=== PATIENT | female | born 1955 | race Caucasian/White ===

== ENCOUNTER 2023-04-07 13:55 | Outpatient (CLI) | payer MEDICARE, BC ==
--- NOTE | 2023-04-15 12:25 | Mammography Report ---
BILATERAL DIGITAL SCREENING MAMMOGRAM 3D/2D WITH AUGMENTATION: 04/07/2023 CLINICAL: Routine screening. No prior exams were available for comparison. There are scattered areas of fibroglandular density in both breasts (category b / 25%-50% glandular t issue). No significant masses, calcifications, or other findings are seen in either breast. There are bilater al intact subpectoral silicone implants. IMPRESSION: BENIGN There is no mammographic evidence of malignancy. A 1 year screening mammogram is recommended. Based on the Tyrer Cuzick model (a risk assessment model) the patients lifetime risk is 6.6% and her 10 year risk is 3.9%. According to the ACR, ACS, and NCCN guidelines, an annual breast MRI exam micki g with mammogram is recommended if the patients lifetime risk is 20% or greater. This exam was interpreted at Station ID: [id number]. NOTE: For mammograms, a report in lay terms will be sent to the patient. Approximately 15% of breast malignancies will not be visualized mammographically. In the management of a palpable breast mass, a negative mammogram must not discourage biopsy of a clinically suspicious lesion. Electronically Signed By: Radha Hernandez M.D. esb/:04/14/2023 14:30:31 ACR BI-RADS Category 2: Benign Finding(s) 3342F PARENCHYMAL PATTERN: (A) - The breast(s) demonstrate(s) scattered fibroglandular densities. BI-RADS CATEGORY: (2) - 2 Mammogram [id number] 1 year screening LATERALITY: (B)
== END 2023-04-07 13:56 | disposition home or self-care (01) ==
LOC: DI.S 13:55
PROVIDERS: ATTEND Nurse Practitioner Family
DX: Z12.31 Encounter for screening mammogram for malignant neoplasm of breast (principal)

== ENCOUNTER 2023-11-18 08:00 | Outpatient (CLI) | payer MEDICARE, BC ==
[2023-11-18 15:22] LABS: BILIRUBIN,URINE NEGATIVE (NEGATIVE); GLUCOSE, URINE (UA) NEGATIVE (NEGATIVE); KETONES,URINE (UA) NEGATIVE (NEGATIVE); LEUKOCYTE ESTERASE, URINE NEGATIVE (NEGATIVE); NITRITE,URINE NEGATIVE (NEGATIVE); OCCULT BLOOD,URINE NEGATIVE (NEGATIVE); PROTEIN,URINE NEGATIVE (NEGATIVE); UROBILINOGEN,URINE 0.2 (NORMAL) E.U./dL (NORMAL)
[2023-11-18 15:33] LABS: BACTERIA,URINE Rare /HPF (None Seen); CLARITY,URINE CLEAR (CLEAR); RBC,URINE 0-5 /HPF (0-5); SQUAMOUS EPITHELIAL CELL,UR RARE Squamous (<= Few); WBC,URINE 0-3 /HPF (0-5)
== END 2023-11-18 23:59 | disposition home or self-care (01) ==
LOC: LAB.S 08:00
PROVIDERS: ATTEND Physician Assistant Medical
DX: R30.0 Dysuria (principal); R80.9 Proteinuria, unspecified
CPT/HCPCS: 81001; 87086

== ENCOUNTER 2023-11-18 08:16 | Outpatient (CLI) | payer MEDICARE, BC ==
--- NOTE | 2023-11-18 11:24 | CT Report ---
PROCEDURE: Lung Cancer Screen INDICATIONS: HIST OF SMOKING TECHNIQUE: A CT scan of the chest was performed. Intravenous contrast media was not administered. Images were re corded and evaluated at appropriate window settings. Reformats: axial MIP of the chest, coronal and s agittal. For radiation dose reduction, the following was used: automated exposure control, adjustment of mA and/or kV according to patient size. COMPARISON: None. FINDINGS: Image quality: Excellent. Prior cancer history: None known Lungs and pleura: No pleural effusions. No pneumothorax. No suspicious pulmonary nodules which requi re follow up. Mediastinum: Heart size is normal. No pericardial effusion. No large vessel abnormality. No mediastin al adenopathy by size criteria although evaluation is limited due to lack of IV contrast. Chest wall and lower neck: Thyroid is unremarkable. No axillary or supraclavicular adenopathy by size . Bilateral breast implants. Bones: No aggressive osseous abnormality. Scoliosis Upper Abdomen: Small hiatal hernia. Possible cholecystectomy clips. Possible splenic artery calcifica tion/1 cm calcified splenic artery aneurysm. IMPRESSION: Lung RAD: 2, benign Recommendation: Continue with LDCT in 12 months if meets criteria Non-Lung Significant Findings: . Scoliosis. Reviewed by: Phill Curry MD on 11/18/2023 11:23 AM PDT Approved by: Phill Curry MD on 11/18/2023 11:23 AM PDT Station ID: [id number]
--- NOTE | 2023-11-18 12:22 | DEXA Report ---
PROCEDURE: Dexa Spine and/or Hip INDICATIONS: OSTEOPOROSIS TECHNIQUE: Dual energy x-ray absorptiometry (DXA) was performed on a [employer] System. Regions measur ed are the AP Spine, femoral neck, and if needed forearm. COMPARISON: None. FINDINGS: Lumbar Spine: Bone Mineral Density: 0.866 g/cm/cm,T score: -2.5. Left Femoral Neck: Bone Mineral Density: 0.876 g/cm/cm, T score: -1.2. Left Hip: Bone Mineral Density: 0.820 g/cm/cm,T score: -1.5. (T score greater or equal to -1.0: NORMAL) (T score from -1.1 to -2.4: OSTEOPENIA) (T score less than or equal to -2.5 to: OSTEOPOROSIS) Impression: By WHO criteria, this patient has osteoporosis. Patients with diagnosis of osteoporosis or osteopenia should have regular bone mineral density assess ment. For those eligible for Medicare, routine testing is allowed once every 2 years. Testing frequ ency can be increased for patients who have rapidly progressing disease or for those who are receivin g medical therapy to restore bone mass. Reviewed by: Leobardo Lauren MD on 11/18/2023 12:21 PM PDT Approved by: Leobardo Lauren MD on 11/18/2023 12:21 PM PDT Station ID: [id number]
== END 2023-11-18 08:17 | disposition home or self-care (01) ==
LOC: DI 08:16
PROVIDERS: ATTEND Registered Nurse
DX: Z12.2 Encounter for screening for malignant neoplasm of respiratory organs (principal); M81.0 Age-related osteoporosis without current pathological fracture; M41.9 Scoliosis, unspecified; Z87.891 Personal history of nicotine dependence

== ENCOUNTER 2023-11-26 11:54 | Day surgery (SDC) | payer MEDICARE, BC ==
--- NOTE | 2023-11-26 08:52 | HISTORY & PHYSICAL EXAMINATION ---
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, Hysterectomy Meds/Allgy - Home Medications Home Medications: Ambulatory Orders Medication Instructions Recorded Confirmed Dicyclomine HCl 20 mg PO HS 09/26/22 11/25/23 Melatonin 5 mg PO HS 09/26/22 11/25/23 Meloxicam, Submicronized 15 mg PO DAILY 09/26/22 11/25/23 [Meloxicam] Rosuvastatin Calcium [Crestor] 5 mg PO DAILY 09/26/22 11/25/23 buPROPion HCL [Bupropion Xl] 450 mg PO DAILY 09/26/22 11/25/23 [place]-3/Dha/Epa/Fish Oil [Fish Oil 1 each PO DAILY 11/25/23 11/25/23 1,000 mg Softgel] Vitc/E/Zinc/Copper/Lutein/Zeax 1 each PO DAILY 11/25/23 11/25/23 [Icaps Areds2 Tablet] valACYclovir [Valtrex] 500 mg PO PRN PRN 11/25/23 11/25/23 - Allergies Allergies/Adverse Reactions: Allergies Allergy/AdvReac Type Severity Reaction Status Date / Time Sulfa (Sulfonamide Allergy Rash Verified 09/26/22 10:51 Antibiotics) Conclusion/Plan - Other Other Results/Comments: History of Present Illness: I am asked to see Leatha for a screening colonoscopy examination. GI symptoms: None Family history of colon cancer: N Family history of colon polyps: N Personal history of colon polyps: N Last colonoscopy examination: 2014 - poor prep Anticoagulant use: NA The Past Family, Social and Personal History has been reviewed with the patient. ROS Denies fevers, chills, night sweats, shortness of breath, chest pain, change in the color of skin or urine, diarrhea, constipation, hematemesis, hematochezia, headache, visual changes, muscle aches. PE VSS, Afeb HEENT: Pupils equil, round and reactive to light, sclera anicteric, normal hearing, oral mucous membranes moist and without lesions NECK: Supple without lymphadenopathy, thyromegaly or carotid bruits LUNGS: Clear to auscultation without wheezing HEART: NSR without murmurs CHEST: Equal and symmetric expansion, no rib pain ABD: Soft, nontender, no hepatosplenomegaly, no hernias GROIN: No hernias or lymphadenopathy EXTREMITIES: Normal neuro and muscular exam SKIN: Anicteric Radiologic Studies N/A Assessment Request for a screening colonoscopy examination. Plan Screening colonoscopy under sedation through the Day Surgery admission protocol at [facility]. Consent: Leatha has been counseled for the procedure, it's indications, risks, benefits and expected outcome as well as alternative therapies. We specifically discussed risks associated with anesthesia and insertion of the endoscope into the large intestine which includes bleeding and injury to the colon which may require surgical intervention. Leatha understands, agrees, and consents to the proposed operative strategy and requests that we proceed with the procedure as outlined in our discussion. Neftali Saenz MD, [facility] General Surgery Service Mallampati Score Class I: The soft palate, tonsils, anterior and posterior pillars, and the entire uvula are easily visible ASA Physical Status Classification System ASA I: A normal healthy patient Allergies: Allergies Reviewed: Done SULFA (SULFADIAZINE) (Critical) Social History Reviewed: Done Medications: Meds Reviewed: Done amoxicillin-pot clavulanate 875-125 mg tablet (amoxicillin-pot clavulanate) Take 1 tablet by mouth twice a day * ICaps AREDS2 (copper citrate) once a day * Fish Oil (wlgsv-4a-ymu-epa-fish oil) once a day rosuvastatin 5 mg tablet (rosuvastatin) bupropion HCl 300 mg tablet extended release 24 hr (bupropion hcl) bupropion HCl 150 mg tablet extended release 24 hr (bupropion hcl) meloxicam 15 mg tablet (meloxicam) dicyclomine 20 mg tablet (dicyclomine) once a day Problems: Problems Reviewed: Done No Known Problems Vital Signs: Patient Profile: 68 Years Old Female Height: 62 inches Weight: 130 pounds BMI: 23.86 Temp: 97.8 degrees F oral Pulse rate: 76 / minute Resp: 97.8 per minute BP sittin / 74 Pt. in pain? no Vitals Entered By: Yolanda Castaneda RN (November 02, 2023 1:24 PM) Problems were reviewed with the patient during this visit. Medications were reviewed with the patient during this visit. Allergies were reviewed with the patient during this visit. Allergies: SULFA (SULFADIAZINE) (Critical) Blood Pressure: Today's BP: 126/74 mmHg <><><><><><> H&P Update: Patient examined, chart reviewed. No changes identified that would alter plan for colonoscopy although patient requires a Fleet's enema to complete the bowel cleansing process. Ariel Saenz MD, [facility] General Surgery Service 11/26/2023
[2023-11-26] MEDS ORDERED: LIDOCAINE-MPF 2% 5 ML VIAL ONE (12:19)
[2023-11-26] MEDS ORDERED: PROPOFOL 500 MG/50 ML 500 MG/50 ML VIAL ONE ×2 (12:19→13:43)
[2023-11-26] MEDS: LACTATED RINGERS 1,000 ML IV ONE ×2 (12:30→13:55)
--- NOTE | 2023-11-26 13:04 | ANESTHESIA ---
Pre-Anesthesia VS, & Labs - Diagnosis SCREENING - Procedure COLONOSCOPY Vital Signs: Temp Pulse Resp BP Pulse Ox O2 Flow Rate 36.2 C L 86 11 L 115/64 98 11/26/23 12:31 11/26/23 12:31 11/26/23 12:31 11/26/23 12:31 11/26/23 12:31 Height: 5 ft 1 in Weight (kg): 59.2 kg Body Mass Index: 24.6 BMI Classification: Normal - NPO >8 hours Last Fluid Intake: MAG CITRATE AT 1130 - Is Patient ?: No Home Medications and Allergies Home Medications: Ambulatory Orders [place]-3/Dha/Epa/Fish Oil [Fish Oil 1,000 mg Softgel] 1 each PO DAILY 11/25/23 Vitc/E/Zinc/Copper/Lutein/Zeax [Icaps Areds2 Tablet] 1 each PO DAILY 11/25/23 valACYclovir [Valtrex] 500 mg PO PRN PRN 11/25/23 Dicyclomine HCl 20 mg PO HS 09/26/22 Melatonin 5 mg PO HS 09/26/22 Meloxicam, Submicronized [Meloxicam] 15 mg PO DAILY 09/26/22 Rosuvastatin Calcium [Crestor] 5 mg PO DAILY 09/26/22 buPROPion HCL [Bupropion Xl] 450 mg PO DAILY 09/26/22 [place]-3/Dha/Epa/Fish Oil [Fish Oil 1,000 mg Softgel] 1 each PO DAILY 11/25/23 Vitc/E/Zinc/Copper/Lutein/Zeax [Icaps Areds2 Tablet] 1 each PO DAILY 11/25/23 valACYclovir [Valtrex] 500 mg PO PRN PRN 11/25/23 Allergies/Adverse Reactions: Allergies Allergy/AdvReac Type Severity Reaction Status Date / Time Sulfa (Sulfonamide Allergy Rash Verified 09/26/22 10:51 Antibiotics) Anes History & Medical History - Anesthetic History Anesthesia Complications: reports: No previous complications Family history of Anesthesia Complications: Denies - Medical History Cardiovascular: reports: High cholesterol Pulmonary: reports: None Gastrointestinal: reports: Other Urinary: reports: None Musculoskeletal: reports: Osteoarthritis Endocrine/Autoimmune: reports: None Skin: reports: None Smoking Status: Former smoker (QUIT 40 YEARS) Psychosocial: reports: No issues indicated - Surgical History General: reports: Cholecystectomy Gynecologic: reports: section, Hysterectomy Orthopedic: reports: Rotator cuff repair, Other Results - EKG Results EKG Comparison: Reviewed EKG Exam General: Alert Dental: WNL Mouth Openin Fingerbreadth Neck Mobility: Normal Mallampati classification: II Thyromental Distance: 4-6 cm Plan Anesthesia Type: Total IV Consent for Procedure(s) Verified and Reviewed: Yes Code Status: Attempt Resuscitation ASA classification: 2-Mild systemic disease Is this case an emergency?: No
[2023-11-26] MEDS ORDERED: ONDANSETRON 4 MG/2 ML VIAL IVP PRN (14:02)
[2023-11-26] MEDS: ONDANSETRON 4 MG/2 ML VIAL ONE (14:08)
[2023-11-26 14:22] VITALS: O2SAT 99
--- NOTE | 2023-11-26 14:46 | ANESTHESIA POST OP EVALUATION ---
Anesthesia Post Eval - Post Anesthesia Eval Vitals: Last Vital Signs Temp 36.4 C L 11/26/23 14:10 Pulse 87 11/26/23 14:10 Resp 14 11/26/23 14:10 BP 118/63 11/26/23 14:10 Pulse Ox 99 11/26/23 14:10 O2 Flow Rate CV Function Including HR & BP: Stable Pain Control: Satisfactory Nausea & Vomiting: Negative Mental Status: Baseline Respiratory Status: Airway Patent Hydration Status: Satisfactory Anesthesia Complications: None
[2023-11-26 14:50] VITALS: BP 133/76
== END 2023-11-26 11:55 | disposition home or self-care (01) ==
LOC: SDS 11:54
PROVIDERS: ATTEND Surgery
DX: Z12.11 Encounter for screening for malignant neoplasm of colon (principal); Z87.891 Personal history of nicotine dependence
CPT/HCPCS: G0121; J7120

== ENCOUNTER 2024-04-13 15:41 | Outpatient (CLI) | payer MEDICARE, BC ==
--- NOTE | 2024-04-19 08:13 | XRAY Report ---
PROCEDURE: Cervical Spine 2-3V INDICATIONS: NECK PAIN TECHNIQUE: 3 view(s) of the cervical spine were acquired. COMPARISON: None. FINDINGS: Bones: No fractures or dislocations to the T1 level. The lateral masses of C1 appear intact on the odontoid view. No suspicious bony lesions. Grade 1 anterolisthesis of C4 on C5 and C7 on T1. Modera te disc height loss at C4-5, C5-6, C6-7. Mild disc height loss at remaining levels. Diffuse facet art hrosis. Soft tissues: No prevertebral soft tissue swelling. IMPRESSION: No displaced fracture or traumatic subluxation. Grade 1 anterolisthesis of C4 on C5 and C7 on T1, presumably due to underlying facet arthrosis. If th ere remains a high clinical concern for fracture, consider CT. Mild to moderate, multilevel degenerative disc disease and diffuse facet arthrosis. Reviewed by: Keaton Shea MD on 04/19/2024 8:12 AM PDT Approved by: Keaton Shea MD on 04/19/2024 8:12 AM PDT Station ID: [id number]
== END 2024-04-13 15:42 | disposition home or self-care (01) ==
LOC: DI.S 15:41
PROVIDERS: ATTEND Registered Nurse
DX: M43.12 Spondylolisthesis, cervical region (principal); M43.13 Spondylolisthesis, cervicothoracic region; M47.812 Spondylosis without myelopathy or radiculopathy, cervical region; M50.321 Other cervical disc degeneration at C4-C5 level

== ENCOUNTER 2024-04-29 11:27 | Outpatient (CLI) | payer MEDICARE, BC ==
[2024-04-29 15:35] LABS: CREATININE 0.7 mg/dL (0.6-1.3); POTASSIUM 4.8 mmol/L (3.5-4.5)
== END 2024-04-29 11:28 | disposition home or self-care (01) ==
LOC: LAB.S 11:27
PROVIDERS: ATTEND Student in an Organized Health Care Education/Training Program
DX: M81.0 Age-related osteoporosis without current pathological fracture (principal)
CPT/HCPCS: 36415; 80048